=== PATIENT | female | born 2000 | race Caucasian/White ===

== ENCOUNTER 2023-03-02 12:01 | Emergency (ER) | payer OTHER ==
[~2023-03-02] VITALS: Ht 154.9 cm; Wt 54.4 kg
[2023-03-02 12:05] VITALS: BP 110/70; PULSE 94; RESP 17; TEMP 97.7; O2SAT 98
[2023-03-02 12:37] VITALS: O2SAT 98
== END 2023-03-02 12:55 | disposition home or self-care (01) ==
LOC: MED 12:01
DX: J02.9 Acute pharyngitis, unspecified (principal); Z20.822 Contact with and (suspected) exposure to COVID-19; Z79.899 Other long term (current) drug therapy
CPT/HCPCS: 99283